=== PATIENT | male | born 1970 | race Caucasian/White ===

== ENCOUNTER 2018-01-10 08:53 | Outpatient (REF) | payer OTHER, SELFPAY ==
[2018-01-10 21:28] LABS: ALT 36 U/L (12-78); Cholesterol 193 mg/dL (50-200); Glucose 109 mg/dL (70-100); HDL Cholesterol 55 mg/dL (40-60); LDL CHOLESTEROL 115 mg/dL (<100); Triglyceride 132 mg/dL (30-150)
[2018-01-10 21:45] LABS: Creatine Kinase 210 U/L (39-308)
== END 2018-01-10 09:13 ==
LOC: NCHCN 08:53
PROVIDERS: PCP Physician Assistant; Visit Provider Internal Medicine
DX: Z00.00 Encounter for general adult medical examination without abnormal findings (principal); Z13.1 Encounter for screening for diabetes mellitus; Z13.220 Encounter for screening for lipoid disorders
CPT/HCPCS: 80061; 82550; 82947; 83721; 84460

== ENCOUNTER 2019-02-13 08:42 | Outpatient (REF) | payer OTHER, SELFPAY ==
[2019-02-13 19:55] LABS: AST 16 U/L (15-37); Calculated LDL 116 mg/dL; Cholesterol 218 mg/dL (50-200); Glucose 105 mg/dL (70-100); HDL Cholesterol 51 mg/dL (40-60); Triglyceride 257 mg/dL (30-150)
[2019-02-13 20:14] LABS: Creatine Kinase 182 U/L (39-308)
== END 2019-02-13 09:02 ==
LOC: NCHCN 08:42
PROVIDERS: PCP Physician Assistant; Visit Provider Internal Medicine
DX: Z00.00 Encounter for general adult medical examination without abnormal findings (principal); E78.5 Hyperlipidemia, unspecified
CPT/HCPCS: 80061; 82550; 82947; 84450

== ENCOUNTER 2021-09-30 18:11 | Outpatient (REF) | payer OTHER, SELFPAY ==
[2021-09-30 21:15] LABS: ALT 42 U/L (16-63); Anion Gap 8.8 mmol/L (3-11); BUN 23 mg/dL (7-18); CO2 27.2 mmol/L (21.0-32.0); CREATININE 1.1 mg/dL (0.70-1.30); Calcium 8.9 mg/dL (8.5-10.1); Calculated LDL 143 mg/dL (<100); Chloride 104 mmol/L (98-107); Cholesterol 269 mg/dL (<200); Glucose 110 mg/dL (74-106); HDL Cholesterol 58 mg/dL (40-60); Potassium 4.1 mmol/L (3.5-5.1); Sodium 140 mmol/L (136-145); Triglyceride 342 mg/dL (<150)
[2021-10-01 19:12] LABS: PSA, Screening 0.4 ng/mL (<=3.5)
== END 2021-09-30 18:12 | disposition home or self-care (01) ==
LOC: NCHCN 18:11
PROVIDERS: PCP Physician Assistant; Visit Provider Internal Medicine
DX: Z00.00 Encounter for general adult medical examination without abnormal findings (principal); R73.03 Prediabetes; E78.5 Hyperlipidemia, unspecified; E66.3 Overweight; Z12.5 Encounter for screening for malignant neoplasm of prostate
CPT/HCPCS: 80048; 80061; 84153; 84460

== ENCOUNTER 2023-10-27 09:22 | Outpatient (REF) | payer BC, SELFPAY ==
--- OUTSIDE RECORDS SUMMARY | 2023-10-27 09:25 | XMS_ITS | Clinical Summary ---
Author Organization [facility] Address [facility] [place] [address] Care Team Providers Care Flower Stripper Name Role Phone Samm Smith MD Primary Care Provider [phone] Allergies No known active allergies Medications Medication Sig Dispensed Refills Start Date End Date Status rosuvastatin (Crestor) 10 mg Tablet Take 10 mg by mouth every evening. 06/30/2020 Active ibuprofen (Advil;Motrin) 800 mg Tablet Take 800 mg by mouth every 8 hours as needed. 06/30/2020 Active Active Problems Problem Noted Date Diagnosed Date Varicose vein of leg 08/15/2020 Family History Medical History Relation Comments Other Mother Thrombophilia Neg Hx Thrombosis Neg Hx Relation Status Comments Mother Social History Tobacco Use Types Packs/Day Years Used Date Smoking Tobacco: Former Cigarettes 0.5 20 0 06/15/1993 - 06/15/2013 Smokeless Tobacco: Never Alcohol Use Standard Drinks/Week Comments Yes 14 (1 standard drink = 0.6 oz pu re alcohol) Sex and Gender Information Value Date Recorded Sex Assigned at Not on file Gender Identity Not on file Sexual Orientation Not on file Last Filed Vital Signs Vital Sign Reading Time Taken Comments Blood Pressure 132/74 11/24/2020 2:42 PM EDT Pulse 59 11/24/2020 2:42 PM EDT Temperature 36.6 ??C (97.9 ??F) 10/23/2020 10:41 AM E DT Respiratory Rate 18 10/23/2020 12:12 PM EDT Oxygen Saturation 98% 10/23/2020 12:12 PM EDT Inhaled Oxygen Concentration - - Weight 104.3 kg (230 lb) 11/24/2020 2:42 PM EDT reported Height 182.9 cm (6') 11/24/2020 2:42 PM EDT repo rted Body Mass Index 31.19 11/24/2020 2:42 PM EDT Plan of Treatment Health Maintenance Due Date Last Done Comments CT Colonography 1971 Colonoscopy 1971 Colorectal Cancer Screening 1971 FIT DNA 1971 FIT 1971 Sigmoidoscopy (10 year) with FIT yearly 1971 Sigmoidoscopy 1971 HIV screen 06/22/1989 Hepatitis C Screening 06/22/1989 Hepatitis B vaccine (0-59 yrs) (1) 06/22/1990 Tdap adult 06/22/1990 Tetanus vaccine 06/22/1990 Diabetes Screening (HgbA1C or Glucose) 2011 Zoster vaccine (1 of 2) 06/22/2021 Covid-19 Vaccine (1 - season) 2022 Influenza (Flu) vaccine (1 o f 1 - Influenza standard series) 12/11/2023 Care Teams Flower Stripper Relationship Specialty Start Date End Date Samm Smith MD [address] [place], [place] [id number] PCP - General 03/03/10
--- OUTSIDE RECORDS SUMMARY | 2023-10-27 09:25 | XMS_ITS | Encounter Summary ---
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 Name Role Phone Samm Smith MD Primary Care Provider Encounter Details Date Type Department Care Team (Late st Contact Info) Description 11/24/2020 2:00 PM EDT Office [place] [id number] Naya López APRN [facility] [place] [address] Varicose veins of left lower extremity with pain; Post-operative state Social History Tobacco Use Types Packs/Day Years Used Date Smoking Tobacco: Former Cigarettes 0.5 20 0 06/15/1993 - 06/15/2013 Smokeless Tobacco: Never Alcohol Use Standard Drinks/Week Comments Yes 14 (1 standard drink = 0.6 oz pu re alcohol) Sex and Gender Information Value Date Recorded Sex Assigned at Not on file Gender Identity Not on file Sexual Orientation Not on file documented as of this encounter Last Filed Vital Signs Vital Sign Reading Time Taken Comments Blood Pressure 132/74 11/24/2020 2:42 PM EDT Pulse 59 11/24/2020 2:42 PM EDT Temperature - - Respiratory Rate - - Oxygen Saturation - - Inhaled Oxygen Concentration - - Weight 104.3 kg (230 lb) 11/24/2020 2:42 PM EDT reported Height 182.9 cm (6') 11/24/2020 2:42 PM EDT repo rted Body Mass Index 31.19 11/24/2020 2:42 PM EDT documented in this encounter Progress Notes * Naya López, SYSTEMS TRAINER - 11/24/2020 2:00 PM EDT Vascular Clinic Progress Note Reason for visit: Post op check Interval history: 50 year old male s/p VNUS and 26 stab phlebectomy on 10/23/2020 at [facility] on10/23/20. States he is doing well, symptoms of discomfort/swelling have completely resolved, has returned to work and previous activities without issue. No fevers, no chills, feels well and is very happy that he had this procedure done. Patient Active Problem List Diagnosis Code ??? Varicose vein of leg I83.90 No Known Allergies Current Outpatient Medications on File Prior to Visit Medication Sig Dispense Refill ??? rosuvastatin (Crestor) 10 mg Tablet Take 10 mg by mouth every evening. ??? ibuprofen (Advil;Motrin) 800 mg Tablet Take 800 mg by mouth every 8 hours as needed. No current facility-administered medications on file prior to visit. Social History Socioeconomic History ??? Marital status: Spouse name: Not on file ??? Number of children: Not on file ??? Years of education: Not on file ??? Highest education level: Not on file Occupational History ??? Not on file Tobacco Use ??? Smoking status: Former Smoker Packs/day: 0.50 Years: 20.00 Pack years: 10.00 Types: Cigarettes Quit date: 06/15/2013 Years since quittin.4 ??? Smokeless tobacco: Never Used Vaping Use ??? Vaping Use: Never used Substance and Sexual Activity ??? Alcohol use: Yes Alcohol/week: 14.0 standard drinks Types: 14 Cans of beer per week ??? Drug use: Never ??? Sexual activity: Not on file Other Topics Concern ??? Not on file Social History Narrative ??? Not on file Social Determinants of Health Financial Resource Strain: ??? Difficulty of Paying Living Expenses: Not on file Food Insecurity: ??? Worried About Running Out of Food in the Last Year: Not on file ??? Ran Out of Food in the Last Year: Not on file Transportation Needs: ??? Lack of Transportation (Medical): Not on file ??? Lack of Transportation (Non-Medical): Not on file Physical Activity: ??? Days of Exercise per Week: Not on file ??? Minutes of Exercise per Session: Not on file ROS: negative except as noted in HPI Physical Exam: General: NAD, appears well Neuro: Alert and oriented, motor sensory grossly intact Ear, Nose, Throat: No masses or lesions Skin: No lesions or abnormal markings Extremity - LLLE Gutierrez, warm, no ulceration, brisk capillary refill, no edema, well healed stab sites. Assessment/Plan: 50 year old male s/p [facility]. States all symptoms have resolved, stab sites well healed, LLE without swelling, wwp. He is very happy with the procedure. To call with questions or problems and f/u PRN. Naya López, MSN, SYSTEMS TRAINER Vascular Surgery documented in this encounter Plan of Treatment Not on file documented as of this encounter Visit Diagnoses Diagnosis Varicose veins of left lower extremity with pain Varicose veins of lower extremities with other complications Post-operative state Other postprocedural status documented in this encounter Care Teams [employer] Air[employer] Officer Relationship Specialty Start Date End Date Samm Smith MD [address] [place] [id number] PCP - General 03/03/10 documented as of this encounter
--- OUTSIDE RECORDS SUMMARY | 2023-10-27 09:25 | XMS_ITS | Encounter Summary ---
Author Organization [facility] [place] [address] Care Team Providers Care Nut Roaster Name Role Phone Samm Smith MD Primary Care Provider [phone] Encounter Details Date Type Department Care Team (Late st Contact Info) Description 09/17/2020 Orders Only Vascular Surgery at [facility] [place] [phone] Anne-Marie Whitman RN Social History Tobacco Use Types Packs/Day Years Used Date Smoking Tobacco: Former Cigarettes 0.5 20 0 06/15/1993 - 06/15/2013 Smokeless Tobacco: Never Sex and Gender Information Value Date Recorded Sex Assigned at Not on file Gender Identity Not on file Sexual Orientation Not on file documented as of this encounter Plan of Treatment Scheduled Orders Name Type Priority Associated Diagnoses Orde r Schedule SURGICAL CASE REQUEST: ENDOVENOUS ABLATION THERAPY OF INCOMPETENT VEIN, EXTREMITY, FIRST VEIN (WRVU 5.3), STAB PHLEBECTOMY ADILENE VEINS 1 EXTREMITY 10-20 INCISIONS (WRVU 7.71) Procedures Routine One Time f or 1 Occurrences starting 09/17/2020 until 09/17/2020 documented as of this encounter Visit Diagnoses Not on filedocumented in this encounter Care Teams Nut Roaster Relationship Specialty Start Date End Date Samm Smith MD [address] [place] [id number] PCP - General 03/03/10 documented as of this encounter
--- OUTSIDE RECORDS SUMMARY | 2023-10-27 09:25 | XMS_ITS | Encounter Summary ---
Author Organization [facility] Address [facility] [place] [address] Care Team Providers Care Lion Tamer Name Role Phone Samm Smith MD Primary Care Provider Reason for Referral * Diagnostic Test (Routine) - Closed Specialty Diagnoses / Procedures Referred By Marianne t Referred To Contact Diagnoses Varicose veins of left lower extremity with pain Procedures Duplex for DVT, Leg, Elisa Blackburn PA [facility] [place] [address] [facility] Lab [address] [place] [address] Referral ID Status Reason Start Date Expiration Date V isits Requested Visits Authorized [id number] Closed Specialty Service Requested 10/23/2020 10/23/2021 1 1 Reason for Visit * Auth/Cert Specialty Diagnoses / Procedures Referred By Contac t Referred To Contact Diagnoses symptomatic varicose veins Procedures PRO ENDOVENOUS RF, 1ST VEIN PRO PHLEB VEINS - EXTREM - TO 20 ENDOVENOUS ABLATION THERAPY OF INCOMPETENT VEIN, EXTREMITY, FIRST VEIN (WRVU 5.3) STAB PHLEBECTOMY ADILENE VEINS 1 EXTREMITY 10-20 INCISIONS (WRVU 7.71) Referral ID Status Reason Start Date Expiration Date Visits Re quested Visits Authorized [id number] 1 1 Encounter Details Date Type Department Care Team (Latest Contact Info) Description 10/23/2020 8:03 AM EDT - 10/23/2020 12:47 PM EDT Hospital Encounter Post Acute Care Unit at [facility] [place] [id number] Jason Bryan MD [facility] [place] [address] Varicose veins of left lower extremity with pain Discharge Disposition: Home Social History Tobacco Use Types Packs/Day Years [...] Sign Reading Time Taken Comments Blood Pressure 135/81 10/23/2020 12:12 PM EDT Pulse 49 10/23/2020 12:12 PM EDT Temperature 36.6 ??C (97.9 ??F) 10/23/2020 10:41 AM E DT Respiratory Rate 18 10/23/2020 12:12 PM EDT Oxygen Saturation 98% 10/23/2020 12:12 PM EDT Inhaled Oxygen Concentration - - Weight 104.3 kg (230 lb) 10/23/2020 8:23 AM EDT Height 182.9 cm (6') 10/23/2020 8:23 AM EDT Body Mass Index 31.19 10/23/2020 8:23 AM EDT documented in this encounter Discharge Instructions * Patient Instructions* Elisa Alarcon PA - 10/23/2020 10:39 AM EDT Instructions following Vein Ablation and Stab Phlebectomy Activity: You should start walking the day after surgery. When sitting, try to elevate and prop your leg up on pillows as much as possible. No vigorous activity (such as jogging, running, biking) forat least 1 week or until cleared to do so at your follow-up visit. Wound care: Keep PO wraps on your leg for the next 48 hours. At that point you can remove all dressings and shower. Do not take a bath or swim for at least 2 weeks. You may have Dermabond (medical glue) or steri-strips (pieces of tape) on your skin. Keep them on until they fall off on their own. If you notice the steri-strips begin to peel off, you may trim them. Bruising around the incisions can be normal and will fade over time. Pain Medication: You may take acetaminophen (Tylenol) and ibuprofen (Advil, Motrin) for pain. If your surgeon provides you prescription pain medicine (opioid) you should not drive for 8 hours after taking it. Call Doctor for: Please call if you notice worsening redness or foul-smelling drainage from incision(s), if your pain is not controlled by pain medication or for fevers greater than 101.3F. Follow-up: You will have an ultrasound in 1-3 days after your procedure. If you do not receive the ultrasound appointment at the time of discharge, you will be called with a date and time. You will be seen by your surgeon (or associate provider) in the Vascular Clinic in approximately 4 weeks. Thisclinic appointment will be mailed to you. Please call our office ([phone]) if you do not receive the ultrasound appointment within 2 days or the clinic appointment within 10 days. For any questions or concerns please call [phone] documented in this encounter Medications at Time of Discharge Medication Sig Dispensed Refills Start Date End Date rosuvastatin (Crestor) 10 mg Tablet Take 10 mg by mouth every evening. 06/30/2020 ibuprofen (Advil;Motrin) 800 mg Tablet Take 800 mg by mouth every 8 hours as needed. 06/30/2020 documented as of this encounter Progress Notes * Christ Marie RN - 10/23/2020 12:45 PM EDT IV removed, site asymptomatic, CDD to site. Discharge instructions discussed with pt and , who verbalized understanding. Dressings CDI upon discharge. Transported out of facility via , [facility]. * Christ Marie RN - 10/23/2020 12:26 PM EDT New dressing remains CDI. Pt in NAD. at bedside helping pt change. Continuing to monitor * Christ Marie RN - 10/23/2020 11:37 AM EDT PA at bedside replacing post-op dressings. Per MD, pt is to stay in bed with leg elevated for the next 30-45min. Pt in NAD. * Christ Marie RN - 10/23/2020 11:29 AM EDT Joey bleeding noted from under PO after ambulation to bathroom. Pt back in bed, pressure dressingapplied, leg elevated. MD and PA aware, continuing to monitor. documented in this encounter H&P Notes * Elisa Alarcon PA - 10/23/2020 9:08 AM EDT Vascular Surgery History and Physical HPI: Ruchi Núñez is a 50 y.o. male with symptomatic BLE varicose veins. Per Dr. Domínguez's last clinic note on 09/12/20, Mr. Núñez has pruritis and aching of his BLE varicose veins, worse in his LLE. Patients worst symptoms are related to a cluster of varicose veins on his L medial thigh. Patient reports his symptoms are worse after he is on his feet throughout the day. 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 Patient denies any hx of superficial thrombophlebitis,venous stasis ulcers, bleeding varicose veins, DVT or PE. He has worn compression stockings for many months with out relief of symptoms. Patient's BLE symptoms from his varicose veins are negatively i mpacting his quality of life. Patient denies any changes to her health or new medical concerns since his last clinic visit. Denies any recent illness. Denies chest pain, dyspnea, cough, fevers, or chills. There are no hospital problems to display for this patient. Active Non-Hospital Problems Diagnosis ??? Varicose vein of leg Review of Systems: A full review encompassing at least 10 organ systems including general, neuro, pulm, cardiac, GI, , MSK, Endo, and Psych was negative other than listed in the HPI. Past Medical History: Past Medical History: Diagnosis Date ??? Varicose vein of leg 08/15/2020 Past Surgical History: Past Surgical History: Procedure Laterality Date ??? VARICOCELECTOMY ??? WISDOM TOOTH EXTRACTION Social Hx: Social History Socioeconomic History ??? Marital status: Spouse name: Not on file ??? Number of children: Not on file ??? Years of education: Not on file ??? Highest education level: Not on file Occupational History ??? Not on file Tobacco Use ??? Smoking status: Former Smoker Packs/day: 0.50 Years: 20.00 Pack years: 10.00 Types: Cigarettes Quit date: 06/15/2013 Years since quittin.3 ??? Smokeless tobacco: Never Used Vaping Use [...] Strain: ??? Difficulty of Paying Living Expenses: Food Insecurity: ??? Worried About Running Out of Food in the Last Year: ??? Ran Out of Food in the Last Year: Transportation Needs: ??? Lack of Transportation (Medical): ??? Lack of Transportation (Non-Medical): Physical Activity: ??? Days of Exercise per Week: ??? Minutes of Exercise per Session: Family Hx: Negative for Thrombosis, Bleeding Disorders Family History Problem Relation Age of Onset ??? Other Mother ??? Thrombophilia Neg Hx ??? Thrombosis Neg Hx Medications: No current facility-administered medications on file prior to encounter. Current Outpatient Medications on File Prior to Encounter Medication Sig Dispense Refill ??? rosuvastatin (Crestor) 10 mg Tablet Take 10 mg by mouth every evening. ??? ibuprofen (Advil;Motrin) 800 mg Tablet Take 800 mg by mouth every 8 hours as needed. Allergies: No Known Allergies Physical Exam: Vital Signs: Temp: [36 ??C (96.8 ??F)] Heart Rate: [58] Resp: [16] BP: (129)/(77) SpO2: [97 %] Heart Rate from SpO2: -- GEN: Alert and appears stated age. Cooperative. In NAD. HEENT: Normocephalic and atraumatic. Neck: Supple, symmetric, trachea midline. CV: Bradycardic. Pulm: No evidence of increased work of breathing. Abd: Soft, non-distended, non-tender to palpation. Skin: Color, texture, turgor normal. No rashes or lesions. Neuro: No focal deficits, gross sensory or motor abnormalities. Extremities: LLE varicose veins along medial distal thigh to medial calf and posterior calf. RLE varicose veins of medial distal thigh and calf. Bilateral UE and LE warm and pink. No edema. No wounds. Labs: No results for input(s): WBC, HGB, HCT, PLATELET in the last 72 hours. No results for input(s): NA, K, CL, CO2, BUN, CREATININE, PHOS, CALCIUM in the last 72 hours. Studies/Imaging: Venous valve incompetence study 09/15/20: Findings: Left ? Reflux?Diameter (mm) ??Depth (mm) ?? Common Femoral Vein ??Reflux ? Femoral Vein ? Reflux ? Popliteal ?Competent ? GSV, Near SFJ ?Reflux ? 8.0 ?10.6 ?? GSV, Proximal Thigh ??Reflux ? 5.5 ? 7.9 ?? GSV, Mid Thigh ? Reflux ? 8.8 ? 6.7 ?? GSV, Distal Thigh ?Reflux ? 6.4 ? 9.1 ?? GSV, ??Knee ? Reflux ? 6.1 ? 7.4 ?? GSV Prox Calf ?Reflux ? 5.2 ? 6.4 ?? GSV, Mid Calf ?Reflux ? 3.4 ? 8.0 ?? GSV, Distal Calf ? Competent ? SSV ?Competent ? Interpretation: LEFT: There is superficial venous reflux in the great saphenous vein >2.7 seconds at the saphenofemoral junction and >3.4 seconds through the thigh, knee and to the mid calf. There is also reflux >2.7 seconds in varicose veins associated with the GSV in the calf and reflux >3.6 in varicose veins associated with the GSV at the knee. No significant reflux noted in the small saphenous vein near the popliteal fossa on today's exam. Deep venous reflux is also noted in the CFV (>2.4 seconds) and in the primary femoral vein through the thigh (reflux >1.6 seconds). No significant reflux noted in the s smaller secondary femoral vein in the proximal to mid thigh or in the popliteal vein. No evidence of common femoral, femoral vein(s) or popliteal DVT. No??evidence of superficial (GSV, SSV or varicose vein) thrombus. Assessment and Plan: Ruchi Núñez is a 50 y.o. male with symptomatic LLE>RLE varicose veins that are lifestyle limiting at this time. Patient has failed conservative therapy with compression stockings and leg elevation. Venous valve incompetence duplex on 09/15/20 reveals deep reflux in L CFV and FV as well as significant GSV reflux to the mid calf. Plan for L GSV ablation and stab phlebectomies to relieve sympt oms from his varicose veins. Patient understands that he may have continued symptoms from his deep venous insufficiency post-operatively. Patient is consented and in agreement with the OR plan today. AMBER Galeana 10/23/2020 documented in this encounter Miscellaneous Notes * Op Note - Jason Bryan MD - 10/23/2020 9:50 AM EDT [facility] [place] [address] Patient Name: Ruchi Núñez : [id number] MR#: [id number] Case Date: 10/23/2020 Case Scheduled Time: 934 Surgeon: Surgeon(s) and Role: * Jason Bryan MD - Primary * Elisa Alarcon PA - Physician Sheet Manufacturing Supervisor Preoperative diagnosis: symptomatic varicose veins Postoperative diagnosis: symptomatic varicose veins Procedure(s) (LRB): ENDOVENOUS ABLATION THERAPY OF INCOMPETENT VEIN, EXTREMITY, FIRST VEIN (WRVU 5.3) (Left) STAB PHLEBECTOMY ADILENE VEINS 1 EXTREMITY MORE 20 INCISIONS (WRVU 9.66) (Left) Anesthesia: General Estimated Blood Loss: 50cc Specimens removed during surgery: None Drains: * No LDAs found * Surgical Closure: Primary Closure - skin incision is completely closed without any wires, sally, drains or other devices Disposition: awakened from anesthesia, extubated and taken to the recovery room in a stable condition, having suffered no apparent untoward event. Condition: doing well without problems Complications: none (Please see the Surgical Encounter Summary for any Implant and Specimen details pertinent to this patient.) Findings: 26 stab phlebectomies Surgical Indications: Mr. Núñez has symptomatic LLE superficial venous insufficiency and varicoseveins. Procedure Description: Mr. Núñez was taken to the operating room after informed consent was obtained. He was placed supine on the operating table under general anesthesia. All pressure points were well-padded and he was secured to the table. The left lower extremity was sterilely prepped and draped. A timeout was performed. The course of the greater saphenous vein was visualized under ultrasound. Using ultrasound guidance, micropuncture needle was used to access the greater saphenous vein at thelevel of the left knee. Using Seldinger technique a micropuncture sheath was inserted over a [place] wire. The sheath used as the insertion for the Marlys vein device. This was deployed in standard fashio n beginning approximately 3 cm away from the saphenofemoral junction down to the puncture site at the level of the knee. At the end the sheath were removed and direct pressure was applied over the ablated vein. Multiple venous varicosities were previously marked. Focal stab incisions totaling 26 were made to remove these varicose veins. Pressure was applied for hemostasis. All punctures were reinforced withSteri-Strips. Leg was bandaged using Kerlix, Telfa, and Po bandage. All counts were correct and there were no complications. Infection Bundle used? No () I worked under my direction for the duration of the operative session. The printer assistant adequately prepped the operative site and maintained the best possible exposure of anatomy incident to the procedure. Jason Bryan MD 10/23/2020 documented in this encounter Plan of Treatment Not on file documented as of this encounter Procedures Procedure Name Priority Date/Time Associated Diagnosis Comments Phleb Veins - Extrem 20+ (81115) 10/23/2020 9:26 AM EDT symptomatic varicose veins Endovenous Ablation Incompetent Vein Radiofrequency 1St Vein (63400) 10/23/2020 9:26 AM EDT symptomatic varicose veins documented in this encounter Results * Duplex for DVT, Leg, Unilat (10/27/2020 10:47 AM EDT) VB Text Report Department: Vascular Surgery Lab Patient: [id number] (RUCHI NÚÑEZ) CPT: 96061 ICD10: I83.812 Referring Physician: JASON BRYAN ?? Phone: Indications: ??s/p L VNUS, ? DVT ICD10 Diagnosis Code: I83.812 Findings: Left- The great saphenous vein is ablated to with in 2.0 cm of the saphenofemoral junction, does not extend into the common femoral vein. Patent inferior epigastric vein. Patent common femoral vein with spontaneous, respirophasic Doppler waveforms that respond normally to augmentation maneuvers. The common femoral vein, saphenofemoral junction and femoral vein through the proximal thigh are fully compressible. Interpretation: Left- Successful ablation of the great saphenous vein. No evidence of lower extremity deep venous thrombosis through the proximal thigh. No previous post-op study in our vascular lab database for comparison. Electronically Signed by: KARIN BURKETT on 2020-10-28 01:53:53 PM [facility] VB Text Report End of Report [facility] 10/27/2020 10:4 7 AM EDT Jason Bryan MD VASCULAR ORDERABLES [facility] documented in this encounter Visit Diagnoses Diagnosis Varicose veins of left lower extremity with pain Varicose veins of lower extremities with other complications documented in this encounter Administered Medications Inactive Administered Medications - up to 3 most recent administrations Medication Order MAR Action Action Date Dose Rate Site lactated ringers infusion 1,000 mL, at 50 mL/hr, Intravenous, CONTINUOUS, Starting on Lina 10/23/20 at 0845, Until Lina 10/23/20 at 1229, Day of Surgery (Day of Procedure) New Bag 10/23/2020 10:29 AM EDT New Bag 10/23/2020 8:45 AM EDT 1,000 mLs 50 mL/hr documented in this encounter Active and Recently Administered Medications Times are shown in EDT. Scheduled Medication Order 10/21/2020 10/22/2020 10/23/2020 ceFAZolin (Ancef) 2 g in dextrose 5% 100 mL infusion (COMPLETED) 2 g, Intravenous, SOLVENT STATION ATTENDANT TO O.R., 1 dose, On Lina 10/23/20 at 0845, Administer over 30 Minutes, Redose after 4 hours., Day of Surgery (Day of Procedure), Indication for (Active or Suspected): Prophylaxis 0938 (Given - Provid er: Po Alfredo CRNA) Continuous Medication Order 10/21/2020 10/22/2020 10/23/2020 lactated ringers infusion (CANCELED) 1,000 mL, at 50 mL/hr, Intravenous, CONTINUOUS, Starting on Lina 10/23/20 at 0845, Until Lina 10/23/20 at 1229, Day of Surgery (Day of Procedure) 0845 (New Bag - Prov ider: Dorita Gonzalez RN)1028 (Paused - Provider: Po Alfredo CRNA - Comment: Switch to gravity)1029 (New Bag - Provider: Po Alfredo CRNA) PRN Medication Order 10/21/2020 10/22/2020 10/23/2020 sodium tetradecyl sulfate (Sotradecol) (30 mg/mL) 3% injection (CANCELED) ONCE PRN, Starting on Lina 10/23/20 at 1009, Until Lina 10/23/20 at 1326, Intra-Operative (Intra-Procedure), Routine 1009 (Given - Provid er: Jason Bryan MD) documented in this encounter Care Teams Lion Tamer Relationship Specialty Start Date End Date Samm Smith MD [address] [place] [id number] PCP - General 03/03/10 documented as of this encounter
--- OUTSIDE RECORDS SUMMARY | 2023-10-27 09:25 | XMS_ITS | Encounter Summary ---
[place] [address] Care Team Providers Care Office Rental Clerk Name Role Phone Samm Smith MD Primary Care Provider Reason for Referral * Diagnostic Test (Routine) - Closed Specialty Diagnoses / Procedures Referred By Contac t Referred To Contact Diagnoses Varicose veins of left lower extremity with pain Procedures LE Unilateral Valvular Incomp Study Antonieta oFx APRN [facility] [place] [address] [facility] Lab [address] [place] [phone] Referral ID Status Reason Start Date Expiration Date V isits Requested Visits Authorized [id number] Closed Specialty Service Requested 08/15/2020 08/15/2021 1 1 Reason for Visit * Consultation (Routine) - Closed Specialty Diagnoses / Procedures Referred By Contac t Referred To Contact Vascular Surgery Diagnoses Asymptomatic varicose veins of bilateral lower extremities Samm Smith MD [address] [place] [id number] [facility] [address] [place] [phone] Referral ID Status Reason Start Date Expiration Date V isits Requested Visits Authorized [id number] Closed Consult, Test & Treat Connection Center PCP Updated and/or Approved 07/29/2020 01/28/2021 6 6 Encounter Details Date Type Department Care Team (Late st Contact Info) Description 08/15/2020 9:00 AM EDT Office Visit [place] [phone] Antonieta Fox APRN [facility] [place] [address] Varicose veins of left lower extremity with pain Social History Tobacco Use Types Packs/Day Years Used Date Smoking Tobacco: Former Cigarettes 0.5 20 0 06/15/1993 - 06/15/2013 Smokeless Tobacco: Never Sex and Gender Information Value Date Recorded Sex Assigned at Not on file Gender Identity Not on file Sexual Orientation Not on file documented as of this encounter Last Filed Vital Signs Vital Sign Reading Time Taken Comments Blood Pressure 145/74 08/15/2020 8:59 AM EDT Pulse 59 08/15/2020 8:59 AM EDT Temperature - - Respiratory Rate - - Oxygen Saturation - - Inhaled Oxygen Concentration - - Weight 104.3 kg (230 lb) 08/15/2020 8:59 AM EDT reported Height 182.9 cm (6') 08/15/2020 8:59 AM EDT repo rted Body Mass Index 31.19 08/15/2020 8:59 AM EDT documented in this encounter Progress Notes * Antonieta Fox APRN - 08/15/2020 9:00 AM EDT Vascular Surgery Consultation Consult requested by Samm Smith MD for evaluation of painful varicose veins. History: Ruchi Núñez is a 50 y.o. male who has noted to have bilateral, L>R varicose veins for ~10 years. The patient has noted the following symptoms below for several years in the left leg, right leg remains asymotomatic. The patient has used OTC compression stockings in the past without relief of symptoms. Of note, pt had a left leg break and repair in 1989. Pt also complains of left plantar heel pain, increased with activity/ambulation. Pain is aching in nature and significant after 8 hours on my feet. Y N SYMPTOM X Leg aching X Leg swelling X Leg elevation greater than 20 minutes/3x per day X Daily use of compression stockings 20-30mmHg (6-8 weeks) X Family history of varicose veins X History of more than two episodes of phlebitis X Refractory edema X Stasis dermatitis X History of DVT X Prior venous surgery X Prior ulceration X Current ulceration X History of two more episodes of bleeding varicosities X Chronic cellulitis Review of Systems: Prior cardiac history: no Prior pulmonary history: no Prior issues with general anesthesia: no Family history of malignant hyperthermia: no Issues with snoring or sleep apnea: no PE: Patient Vitals for the past 24 hrs: Pulse BP 08/15/20 0859 59 145/74 Body mass index is Body mass index is 31.19 kg/m??. Heart: RRR, no murmurs, no S3 or S4 Chest: CTA, no wheeze Location of the varicosities: Left medial thigh, left medial and posterior calf Size of the varicosities (greater than 3mm): 9-15mm Carotid pulses equal and bilateral No palpable pulsatile abdominal masses, no abdominal bruits Palpable bilateral femoral, popliteal and tibial pulses Y N PHYSICAL FINDINGS X Radial pulses bilaterally X DP and PT pulses bilaterally X Evidence of healed ulceration X Stasis dermatitis X Cellulitis X Palpable Thrills Plan for Intervention: Ruchi Núñez is a 50 y.o. male with a hx of varicose veins for ~10 years. Recommend patient start wearing 20-30 mmHg compression stockings throughout the day, will provide prescription. Elevate LE for at least 20 minutes 3 x per day. Careful monitoring for development of wounds or bleeding varicose veins. Follow- up in clinic in 4-6 weeks with LE venous valvular incompetence study. Instructed to call the clinic with any concerns prior to next appointment. Pt's left heel pain seems unrelated to venous reflux as it is on the plantar, walking surface. Pt does have faint venous stasis present to left medial ankle that may be contributory. Pt is encouragedto follow-up with PCP for ongoing heel pain workup. Antonieta Fox APRN Department of Vascular Surgery documented in this encounter Plan of Treatment Not on file documented as of this encounter Results * LE Unilateral Valvular Incomp Study (09/12/2020 8:48 AM EDT) VB Text Report Department: Vascular Surgery Lab Patient: [id number] (RUCHI NÚÑEZ) CPT: 82025 ICD10: I87.2;I83.812 Referring Physician: ANTONIETA FOX ?? Phone: Indications: 50 year old male with symptomatic LEFT lower extremity varicose veins (primarily knee through calf), ? reflux Patient Positioning: ??Reverse Trendelenburg ICD10 Diagnosis Code: I87.2, I83.812 Findings: Left ? Reflux?Diameter (mm) ??Depth (mm) [...] common femoral, femoral vein(s) or popliteal DVT. No evidence of superficial (GSV, SSV or varicose vein) thrombus. Comparison: No previous study in our vascular lab database from comparison. Electronically Signed by: MARIO KARIMI MD on 2020-09-15 02:43:00 PM [facility] VB Text Report End of Report [facility] 09/12/2020 8:48 AM EDT Antonieta Fox APRN VASCULAR ORDERABLES [facility] documented in this encounter Visit Diagnoses Diagnosis Varicose veins of left lower extremity with pain Varicose veins of lower extremities with other complications documented in this encounter Care Teams Office Rental Clerk Relationship Specialty Start Date End Date Samm Smith MD [address] [address] PCP - General 03/03/10 documented as of this encounter
--- OUTSIDE RECORDS SUMMARY | 2023-10-27 09:25 | XMS_ITS | Encounter Summary ---
Author Organization [facility] Address [facility] [place] [address] Care Team Providers Care Psychology Teacher Name Role Phone Samm Smith MD Primary Care Provider Reason for Visit * Auth/Cert Specialty Diagnoses / Procedures Referred By Marianne t Referred To Contact Diagnoses symptomatic varicose veins Procedures PRO ENDOVENOUS RF, 1ST VEIN PRO PHLEB VEINS - EXTREM - TO 20 ENDOVENOUS ABLATION THERAPY OF INCOMPETENT VEIN, EXTREMITY, FIRST VEIN (WRVU 5.3) STAB PHLEBECTOMY ADILENE VEINS 1 EXTREMITY 10-20 INCISIONS (WRVU 7.71) Referral ID Status Reason Start Date Expiration Date Visits Re quested Visits Authorized [id number] 1 1 Encounter Details Date Type Department Care Team (Late st Contact Info) Description 10/23/2020 9:25 AM EDT Anesthesia [place] [address] [place] [address] Anesthesia Record Procedure Summary Procedure Name Responsible Anesthesiologist Anesthesia Start Time Anesthesia Stop Time ENDOVENOUS ABLATION THERAPY OF INCOMPETENT VEIN, EXTREMITY, FIRST VEIN (WRVU 5.3) (Left: Leg) Po Alfredo CRNA 10/23/20 0925 10/23/20 1046 Events Date Time Event Comment 10/23/2020 0917 0925 AN Verify 0925 Start 0926 An Start Data 0934 An Induction 0936 An Intubation 0938 Anesthesia Ready 1036 Extubation/LMA Out 1037 an stop data 1046 Recovery or ICU Handoff Sumaya ent care was transferred to the destination unit staff after review of the patient's medical history, current anesthetic/surgical status and plan, according to the Provider Handoff Checklist. 1046 Stop Meds Name Total Midazolam 4 mg fentaNYL 100 mcg Propofol 400 mg Propofol INF 276.4 mg Ondansetron 8 mg Dexamethasone 4 mg Ketorolac 30 mg ceFAZolin (Ancef) 2 g in dextrose 5% 100 mL infusion 2 g lactated ringers infusion 1,000 mL * Agents Name O2 Air N2O Sevoflurane (et) * Blood No blood administrations on file. Lines, Drains, and Airways Type Details Placement Removal (RETIRED) Peripheral IV Line - Single Lumen 10/23/20; 0845; metacarpal vein (top of hand), left; eyal-yqn-obvhpi catheter system; 20 gauge; es; distraction, tolerated well; 01/14/21 (LDA Cleanup utility RA#[id number]); 1650 (LDA Cleanup utility RA#[id number]) 10/23/20 0845 by Dorita Gonzalez RN 01/14/21 1650 by Tien Luevano Supraglottic Mask Ventilation: Adjunct (2); LMA Type: iGel; LMA Size: 4; Inserted by: Walt Alfredo CRNA; Removal Date: 10/23/20; Removal Time: 1036 10/23/20 0936 by Po Alfredo CRNA 10/23/20 1036 by Po Alfredo CRNA Incision 10/23/20; 0950; Left ; leg; vascular punctures; 12/07/21 (LDA cleanup utility RA#[id number]); 1715 (LDA cleanup utility RA#[id number]) 10/23/20 0950 by Jessenia Fuchs RN 12/07/21 1715 by Renee Gee documented in this encounter Social History Tobacco Use Types Packs/Day Years [...] on file documented as of this encounter OR Notes * Anesthesia Postprocedure Evaluation - Po Alfredo CRNA - 10/23/2020 12:11 PM EDT Department of Anesthesiology Post-procedure Note Patient: Gomez Sparks Procedure Summary Date: 10/23/20 Room / Location: [facility] MAIN OR Anesthesia Start: 924 Anesthesia Stop: 1045 Procedures: ENDOVENOUS ABLATION THERAPY OF INCOMPETENT VEIN, EXTREMITY, FIRST VEIN (WRVU 5.3) (Left Leg) STAB PHLEBECTOMY ADILENE VEINS 1 EXTREMITY MORE 20 INCISIONS (WRVU 9.66) (Left Leg) Diagnosis: (symptomatic varicose veins) Surgeons: Jason Bryan MD Responsible Provider: Po Alfredo CRNA Anesthesia Type: general ASA Status: 2 All Anesthesia Providers: ERICA Independent: Po Alfredo CRNA Vitals Value Taken Time BP 127/76 10/23/20 1102 Temp 36.6 ??C (97.9 ??F) 10/23/20 1041 Pulse 72 10/23/20 1102 Resp 20 10/23/20 1102 SpO2 97 % 10/23/20 1102 Pain Level Patient Location: PACU Level of Consciousness: Awake and Alert Pain Management: Satisfactory Analgesia PONV: None Cardiovascular Status: At Baseline Respiratory Status: At Baseline Postoperative Fluid Status: Intravascular EUvolemia Possible Anesthetic Complications: NONE apparent at time of evaluation Final Primary Anesthesia Type: General (The anesthetic type performed was the same as planned.) Comments: See PACU Flow Sheet * Anesthesia Preprocedure Evaluation - Po Alfredo CRNA - 10/23/2020 9:16 AM EDT Pre-Anesthesia Evaluation for: Gomez Sparks a 50 y.o. male. Procedure(s): ENDOVENOUS ABLATION THERAPY OF INCOMPETENT VEIN, EXTREMITY, FIRST VEIN (WRVU 5.3) STAB PHLEBECTOMY ADILENE VEINS 1 EXTREMITY 10-20 INCISIONS (WRVU 7.71) Patient Active Problem List Diagnosis ??? Varicose vein of leg Past Medical History: Diagnosis Date ??? Varicose vein of leg 08/15/2020 Past Surgical History: Procedure Laterality Date ??? VARICOCELECTOMY ??? WISDOM TOOTH EXTRACTION Social History Tobacco Use ??? Smoking status: Former Smoker Packs/day: 0.50 Years: 20.00 Pack years: 10.00 Types: Cigarettes Quit date: 06/15/2013 Years since quittin.3 ??? Smokeless tobacco: Never Used Substance Use Topics ??? Alcohol use: Yes Alcohol/week: 14.0 standard drinks Types: 14 Cans of beer per week Social History Substance and Sexual Activity Drug Use Never No Known Allergies Medications: MAR and/or home medications have been reviewed. Physical Exam: Preprocedure Vitals Current as of 10/23/20 0916 BP: 129/77 Pulse: 58 Resp: 16 SpO2: 97 Temp: 36 ??C (96.8 ??F) Height: 182.9 cm (6') (10/23/20) Weight: 104.3 kg (230 lb) (10/23/20) BMI: 31.19 IBW: 77.6 kg (171 lb 1.9 oz) Last edited 10/23/20 0823 by ES Airway Assessment: Mallampati: II TM distance: >3 FB Neck ROM: full Cardiovascular Assessment: Rhythm: regular Rate: normal Pulmonary Assessment: breath sounds clear to auscultation Dental Assessment: - normal exam Misc Assessment: Patient is wearing No contact(s). IV access: Peripheral line Last Filed Perioperative Cognitive Screening None Anesthesia Plan: ASA 2 general, with a(n) intravenous induction Informed Consent: Anesthetic plan and risks discussed with patient. Anesthesia Screening documented in this encounter Plan of Treatment Not on file documented as of this encounter Visit Diagnoses Not on filedocumented in this encounter Administered Medications Inactive Administered Medications - up to 3 most recent administrations Medication Order MAR Action Action Date Dose Rate Site ceFAZolin (Ancef) 2 g in dextrose 5% 100 mL infusion 2 g, Intravenous, RECONCILIATION COORDINATOR TO O.R., 1 dose, On Lina 10/23/20 at 0845, Administer over 30 Minutes, Redose after 4 hours., Day of Surgery (Day of Procedure), Indication for (Active or Suspected): Prophylaxis Given 10/23/2020 9:38 AM EDT 2 g dexamethasone (Decadron) injection Intravenous, PRN, Starting on Lina 10/23/20 at 0937, Until Lina 10/23/20 at 1046, Anesthesia Intra-op, Routine Given 10/23/2020 9:37 AM EDT 4 mg fentaNYL (pf) (50 mcg/mL) multi-dose injection Intravenous, PRN, Starting on Lina 10/23/20 at 0946, Until Lina 10/23/20 at 1046, Anesthesia Intra-op, Routine Given 10/23/2020 9:46 AM EDT 100 mcg ketorolac (Toradol) (30 mg/mL) injection Intravenous, PRN, Starting on Lina 10/23/20 at 1029, Until Lina 10/23/20 at 1046, Anesthesia Intra-op, Routine Given 10/23/2020 10:29 AM EDT 30 mg lactated ringers infusion 1,000 mL, at 50 mL/hr, Intravenous, CONTINUOUS, Starting on Lina 10/23/20 at 0845, Until Lina 10/23/20 at 1229, Day of Surgery (Day of Procedure) New Bag 10/23/2020 10:29 AM EDT New Bag 10/23/2020 8:45 AM EDT 1,000 mLs 50 mL/hr midazolam (pf) (Versed) (1 mg/mL) multi-dose injection Intravenous, PRN, Starting on Lina 10/23/20 at 0925, Until Lina 10/23/20 at 1046, Anesthesia Intra-op, Routine Given 10/23/2020 9:26 AM EDT 2 mg Given 10/23/2020 9:25 AM EDT 2 mg ondansetron (pf) (Zofran) (2 mg/mL) injection Intravenous, PRN, Starting on Lina 10/23/20 at 0937, Until Lina 10/23/20 at 1046, Anesthesia Intra-op, Routine Given 10/23/2020 9:37 AM EDT 8 mg propofoL (Diprivan) 10 mg/mL bolus injection (Anesthesia) Intravenous, PRN, Starting on Lina 10/23/20 at 0934, Until Lina 10/23/20 at 1046, Anesthesia Intra-op Given 10/23/2020 9:35 AM EDT 100 mg Given 10/23/2020 9:34 AM EDT 300 mg propofoL (Diprivan) infusion Intravenous, CONTINUOUS PRN, Starting on Lina 10/23/20 at 0939, Until Lina 10/23/20 at 1046, Anesthesia Intra-op, Routine New Bag 10/23/2020 9:39 AM EDT 50 mcg/kg/min 31.29 mL/hr documented in this encounter Care Teams Psychology Teacher Relationship Specialty Start Date End Date Samm Smith MD [address] [place] [id number] PCP - General 03/03/10 documented as of this encounter
--- OUTSIDE RECORDS SUMMARY | 2023-10-27 09:25 | XMS_ITS | Encounter Summary ---
Author Organization [facility] Address [facility] [place] [address] Care Team Providers Care Nuclear Control Room Operator Name Role Phone Samm Smith MD Primary Care Provider [phone] Encounter Details Date Type Department Care Team (Late st Contact Info) Description 10/14/2020 Telephone [place] [address] Elisa Alarcon PA [facility] [place] [address] Social History Tobacco Use Types Packs/Day Years Used Date Smoking Tobacco: Former Cigarettes 0.5 20 0 06/15/1993 - 06/15/2013 Smokeless Tobacco: Never Sex and Gender Information Value Date Recorded Sex Assigned at Not on file Gender Identity Not on file Sexual Orientation Not on file documented as of this encounter Miscellaneous Notes * Telephone Encounter - Elisa Alarcon PA - 10/14/2020 4:47 PM EDT Patient denies any changes to his health since his last clinic appointment. Denies any new health issues or concerns, anticipating OR at [facility] on 10/23/20. Instructed to call the clinic with any concerns prior to next appointment. AMBER Galeana documented in this encounter Plan of Treatment Not on file documented as of this encounter Visit Diagnoses Not on filedocumented in this encounter Care Teams Nuclear Control Room Operator Relationship Specialty Start Date End Date Samm Smith MD [address] [address] PCP - General 03/03/10 documented as of this encounter
--- OUTSIDE RECORDS SUMMARY | 2023-10-27 09:25 | XMS_ITS | Encounter Summary ---
Author Organization [facility] Address [facility] [place] [address] Care Team Providers Care Automatic Folder Seamer Name Role Phone Samm Smith MD Primary Care Provider Encounter Details Date Type Department Care Team (Late st Contact Info) Description 10/27/2020 11:00 AM EDT Tech [place] [id number] [place] Varicose veins of left lower extremity with [...] as of this encounter Plan of Treatment Not on file documented as of this encounter Procedures Procedure Name Priority Date/Time Associated Diagnosis Comments DUPLEX FOR DVT, LEG, UNILAT Routine 10/27/2020 10:47 AM EDT Varicose veins of left lower extremity with pain documented in this encounter Results * Duplex for DVT, Leg, Unilat (10/27/2020 10:47 AM EDT) VB Text Report Department: Vascular Surgery Lab Patient: [id number] (RUCHI NÚÑEZ) CPT: 69342 ICD10: I83.812 Referring Physician: JASON BRYAN ?? [...] AM EDT Jason Bryan MD VASCULAR ORDERABLES Performing Organization Address City/State/[facility] Co de Phone Number VASCU[facility] documented in this encounter Visit Diagnoses Diagnosis Varicose veins of left lower extremity with pain Varicose veins of lower extremities with other complications documented in this encounter Care Teams Automatic Folder Seamer Relationship Specialty Start Date End Date Samm Smith MD [address] [place] [id number] PCP - General 03/03/10 documented as of this encounter
--- OUTSIDE RECORDS SUMMARY | 2023-10-27 09:25 | XMS_ITS | Encounter Summary ---
Author Organization [facility] Address [facility] [place] [address] Care Team Providers Care Scrap Handler Name Role Phone Samm Smith MD Primary Care Provider Encounter Details Date Type Department Care Team (Late st Contact Info) Description 09/12/2020 10:30 AM EDT Office [place] [address] Lynnette Domínguez MD [facility] [place] [place] [address] Varicose veins of left lower extremity with [...] Sign Reading Time Taken Comments Blood Pressure 129/69 09/12/2020 10:24 AM EDT Pulse 69 09/12/2020 10:24 AM EDT Temperature - - Respiratory Rate - - Oxygen Saturation - - Inhaled Oxygen Concentration - - Weight 104.3 kg (230 lb) 09/12/2020 10:24 AM EDT reported Height 182.9 cm (6') 09/12/2020 10:24 AM EDT rep orted Body Mass Index 31.19 09/12/2020 10:24 AM EDT documented in this encounter Progress Notes * Lynnette Domínguez MD - 09/12/2020 10:30 AM EDT Images from the original note were not included. Section of Vascular Surgery [facility] [address] [place], [place] [address] OUTPATIENT VASCULAR SURGERY FOLLOW-UP SERVICE DATE: 09/12/2020 SERVICE TIME: 10:59 AM PRIMARY CARE PHYSICIAN: Samm Smith MD REFERRING PROVIDER: [place] [address] Consult requested for an opinion regarding the evaluation and treatment of the above. My final impression and recommendations will be communicated back to the requesting physician by way of the shared medical record or letter via US mail. Reason for Visit: bilateral L>R varicose veins History of Present Illness: Gomez Sparks is a 50 y.o. male here for evaluation of bilateral lower extremity varicose veins, left greater than right. Patient reports that he has itching as well as aching from the knee to the heel. He reports that most significant is the left medial thigh cluster. This area is very painful and aching. He also has burning sensation that is worse at the end of the day. 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 Patient reports he is known to have left lower extremity varicose veins for the last 10 years. He has had no prior interventions. He has no prior history of DVT or PE. No prior history of bleeding varicosities, superficial thrombophlebitis. No prior history of cellulitis, or venous ulcerations. He does wear compression stockings 20 to 30 mmHg for many months, however he does feel that this makes it worse at the end of the day. He is a former smoker and quit 2013. Denies any chest pain or shortness of breath with any of his activities. Past Medical History: Diagnosis Date ??? Varicose vein of leg 08/15/2020 Past Surgical History: Procedure Laterality Date ??? VARICOCELECTOMY No family history on file. Social History Tobacco Use ??? Smoking status: Former Smoker Packs/day: 0.50 Years: 20.00 Pack years: 10.00 Types: Cigarettes Quit date: 06/15/2013 Years since quittin.2 ??? Smokeless tobacco: Never Used Vaping Use ??? Vaping Use: Never used Substance Use Topics ??? Alcohol use: Not on file ??? Drug use: Not on file Current Outpatient Medications Medication Sig Dispense Refill ??? rosuvastatin (Crestor) 10 mg Tablet ??? ibuprofen (Advil;Motrin) 800 mg Tablet No current facility-administered medications for this visit. No Known Allergies COMPLETE REVIEW OF SYSTEMS All other reviewed and negative other than HPI. Physical Exam: PHYSICAL EXAM Physical Exam Performed BP 129/69 (BP Location (NBP): Right arm, Patient Position: Sitting, BP Cuff Sizes: Adult (25-34 cm)) Pulse 69 Ht 182.9 cm (6') Comment: reported Wt 104.3 kg (230 lb) Comment: reported BMI 31.19 kg/m?? CONSTITUTIONAL: alert, well developed, well nourished, in no acute distress NEUROLOGIC/PSYCHIATRIC: Grossly normal HEENT: normal atraumatic, no neck masses, normal thyroid, no jvd. LUNGS: Normal chest wall and respirations. Clear to auscultation. HEART: regular rate and rhythm, S1, S2 normal, no murmur, click, rub or gallop ABDOMEN: soft, non-tender; bowel sounds normal; no masses, no organomegaly INTEGUMENTARY: Wound - none SURGICAL SITES: none MUSCULOSKELETAL: varicosities large along L medial dist thigh, Medial calf and L posterior calf. R medla distal thigh and calf Pulses/Signals: Brachial Radial Femoral Popliteal Dorsalis Pedis Posterior Tibial Right 2/2 2/2 2/2 2/2 2/2 2/2 Left 2/2 2/2 2/2 2/2 2/2 2/2 DATA: Radiology: 09/12/2020 LLE venous insufficiency study Left ? Reflux?Diameter (mm) ??Depth (mm) ?? [...] ? Competent ? SSV ?Competent ? Interpretation: ?? LEFT: There is superficial venous reflux in [...] near the popliteal fossa on today's exam. ?? Deep venous reflux is also noted in the CFV (>2.4 seconds) and in the primary femoral vein through the thigh (reflux >1.6 seconds). No significant reflux noted in the s smaller secondary femoral vein in the proximal to mid thigh or in the popliteal vein. ?? No evidence of common femoral, femoral vein(s) or popliteal DVT. No??evidence of superficial (GSV, SSV or varicose vein) thrombus. ?? I have personally reviewed the following images/data: duplex Impression: 50 y.o. male with symptomatic varicose veins left greater than right that are lifestylelimiting and not improved with conservative measures of compression stockings and elevation. He is noted on duplex today to have a combination of deep and superficial venous reflux. He has deep reflux in his common femoral and femoral vein on the left as well as significant GSV reflux throughout tothe mid calf. I recommended left GSV ablation and stab phlebectomies to help relieve his symptomatic varicose veins. I discussed that he does have ongoing deep venous insufficiency, and he may not have complete resolution of his symptoms. Deep venous insufficiency is predominantly treated with compression and he will require this ongoing long-term. Given that the majority of his symptoms are overhis focal varicosities, I suspect that he will have significant relief from intervention. I discussed the risks and benefits of these procedures and he is interested in proceeding. Plan: - L GSV ablation and stab phlebectomies - ok for [facility] SIGNATURE: Lynnette Domínguez MD PATIENT NAME: Gomez Sparks DATE: September 12, 2020 TIME: 10:59 AM documented in this encounter Plan of Treatment Not on file documented as of this encounter Visit Diagnoses Diagnosis Varicose veins of left lower extremity with pain Varicose veins of lower extremities with other complications documented in this encounter Care Teams Scrap Handler Relationship Specialty Start Date End Date Samm Smith MD [address] [place] [id number] PCP - General 03/03/10 documented as of this encounter
--- OUTSIDE RECORDS SUMMARY | 2023-10-27 09:25 | XMS_ITS | Encounter Summary ---
Author Organization [facility] Address [address] [place] [address] Care Team Providers Care Assistant Store Manager Trainee Name Role Phone Unavailable Primary Care Provider Unavailabl e Encounter Details Date Type Department Care Team (Late st Contact Info) Description 10/01/2021 Lab Requisition [facility] Pathology & Laboratory Medicine - [facility] [address] [place] [address] Outr Resulting Lab, Provider Social History Tobacco Use Types Packs/Day Years Used Date Smoking Tobacco: Never Assessed Sex and Gender Information Value Date Recorded Sex Assigned at Not on file Gender Identity Not on file Sexual Orientation Not on file documented as of this encounter Plan of Treatment Not on file documented as of this encounter Procedures Procedure Name Priority Date/Time Associated Diagnosis Comments PSA TOTAL, DIAGNOSTIC Routine 09/30/2021 17:55 EDT documented in this encounter Results * PSA TOTAL, DIAGNOSTIC (09/30/2021 17:55 EDT) PSA 0.4 <=3.5 ng/mL 10/01/2021 19:07 EDT [facility] Blood VENOUS BLOOD / Unknown 09/30/2021 17:55 EDT 10/01/2021 18:00 EDT Narrative [facility] - 10/01/2021 19:07 EDT NOTE: Serum PSA concentration should not be interpreted as absolute evidence for the presence or absence of malignant disease. Assayed on Siemens ADVIA Centaur XPT using chemiluminescent technology.??Values obtained by using different assay methods cannot be used interchangeably. Provider Outr Resulting Lab CHEMISTRY & BLOOD GAS ORDERABLES [facility] [address] [place] [address] documented in this encounter Visit Diagnoses Not on filedocumented in this encounter
--- OUTSIDE RECORDS SUMMARY | 2023-10-27 09:25 | XMS_ITS | Encounter Summary ---
Author Organization [facility] [place] [address] Care Team Providers Care Head Piece Assembler Name Role Phone Samm Smith MD Primary Care Provider Encounter Details Date Type Department Care Team (Late st Contact Info) Description 09/24/2020 Telephone Vascular Surgery at [facility] [place] [address] Ada Fernandes Social History Tobacco Use Types Packs/Day Years Used Date Smoking Tobacco: Former Cigarettes 0.5 20 0 06/15/1993 - 06/15/2013 Smokeless Tobacco: Never Sex and Gender Information Value Date Recorded Sex Assigned at Not on file Gender Identity Not on file Sexual Orientation Not on file documented as of this encounter Miscellaneous Notes * Telephone Encounter - Ada Fernandes - 09/24/2020 11:49 AM EDT LVM for call back to discuss scheduling Surgery at [facility] * Telephone Encounter - Ada Fernandes - 09/24/2020 11:49 AM EDT I spoke with Mr. Sparks - we have scheduled him for Surgery on 10/23/[address] Bryan. He will have a chuck wagon driver. He will make an appt to have H&P with PCP (Dr. Smith) no later than 1 week prior to Surgery. Letter sent. documented in this encounter Plan of Treatment Not on file documented as of this encounter Visit Diagnoses Not on filedocumented in this encounter Care Teams Head Piece Assembler Relationship Specialty Start Date End Date Samm Smith MD [address] [place] [id number] PCP - General 03/03/10 documented as of this encounter
--- OUTSIDE RECORDS SUMMARY | 2023-10-27 09:25 | XMS_ITS | Referral Summary ---
Author Organization [facility] Address [address] [place] [address] Care Team Providers Care Highway Maintenance Worker Name Role Phone Unavailable Primary Care Provider Unavailabl e Social History Tobacco Use Types Packs/Day Years Used Date Smoking Tobacco: Never Assessed Sex and Gender Information Value Date Recorded Sex Assigned at Not on file Gender Identity Not on file Sexual Orientation Not on file Plan of Treatment Not on file
--- OUTSIDE RECORDS SUMMARY | 2023-10-27 09:25 | XMS_ITS | Encounter Summary ---
Author Organization [facility] Address [facility] [place] [address] Care Team Providers Care Homicide Squad Lieutenant Name Role Phone Samm Smith MD Primary Care Provider [phone] Encounter Details Date Type Department Care Team (Late st Contact Info) Description 10/16/2020 12:45 PM EDT Telephone Pre-Admission Testing at [facility] [address] [place] [address] Social History Tobacco Use Types Packs/Day Years [...] on file documented as of this encounter Progress Notes * Monica Gaitan RN - 10/16/2020 12:47 PM EDTSummary: covid COVID-19 SCREENING: In the past 14 days, have you had any of the following symptoms: [] Fever (subjective or documented fever) [] Chills [] Cough [] Shortness of breath or difficulty breathing [] Fatigue [] Muscle or body aches [] Headache [] New loss of taste or smell [] Sore throat [] Nausea or vomiting [] Diarrhea [x]NONE OF THE ABOVE Vaccinated documented in this encounter Plan of Treatment Not on file documented as of this encounter Visit Diagnoses Not on filedocumented in this encounter Care Teams Homicide Squad Lieutenant Relationship Specialty Start Date End Date Samm Smith MD [address] [place] [address] PCP - General 03/03/10 documented as of this encounter
--- OUTSIDE RECORDS SUMMARY | 2023-10-27 09:25 | XMS_ITS | Encounter Summary ---
Author Organization [facility] Address [facility] [place] [address] Care Team Providers Care Supervisor Research Kennel Name Role Phone Samm Smith MD Primary Care Provider [phone] Encounter Details Date Type Department Care Team (Late st Contact Info) Description 09/12/2020 9:00 AM EDT Tech [place] [id number] Deidre García, NAHID Varicose veins of left lower extremity with [...] Procedure Name Priority Date/Time Associated Diagnosis Comments UNLATERAL VALVULAR INCOMP Routine 09/12/2020 8:48 AM EDT Varicose veins of left lower extremity with pain documented in this encounter Results * LE Unilateral Valvular Incomp Study (09/12/2020 8:48 AM EDT) VB Text Report Department: Vascular Surgery Lab Patient: [id number] (RUHCI NÚÑEZ) CPT: 84697 ICD10: I87.2;I83.812 Referring Physician: ANTONIETA FOX ?? [...] AM EDT Antonieta Fox APRN VASCULAR ORDERABLES Performing Organization Address City/State/[facility] Co de Phone Number VASCUBASE documented in this encounter Visit Diagnoses Diagnosis Varicose veins of left lower extremity with pain Varicose veins of lower extremities with other complications documented in this encounter Care Teams Supervisor Research Kennel Relationship Specialty Start Date End Date Samm Smith MD [address] [place] [id number] PCP - General 03/03/10 documented as of this encounter
--- OUTSIDE RECORDS SUMMARY | 2023-10-27 09:25 | XMS_ITS | Encounter Summary ---
Author Organization [facility] Address [facility] [place] [address] Care Team Providers Care Director Of Event Management Name Role Phone Samm Smith MD Primary [...] Expiration Date Visits Re quested Visits Authorized [id number] 1 1 Encounter Details Date Type Department Care Team (Late st Contact Info) Description 10/23/2020 9:35 AM EDT - 10/23/2020 10:54 AM EDT Surgery Operating Room Cely [address]ison [address] [place] [id number] Jason Bryan MD [facility] [place] [address] ENDOVENOUS ABLATION THERAPY OF INCOMPETENT VEIN, EXTREMITY, FIRST VEIN (WRVU 5.3) Social History Tobacco Use Types Packs/Day Years [...] Sign Reading Time Taken Comments Blood Pressure 107/58 10/23/2020 10:52 AM EDT Pulse 56 10/23/2020 10:52 AM EDT Temperature 36.6 ??C (97.9 ??F) 10/23/2020 10:41 AM E DT Respiratory Rate 16 10/23/2020 10:52 AM EDT Oxygen Saturation 96% 10/23/2020 10:52 AM EDT Inhaled Oxygen Concentration - - Weight [...] mailed to you. Please call our office ([phone]) if you do not receive the ultrasound appointment within 2 days or the clinic appointment within 10 days. For any questions or concerns please call [phone] documented in this encounter Medications at Time [...] discharge. Transported out of facility via , [facility]. * Christ Marie RN - 10/23/2020 12:26 [...] back in bed, pressure dressingapplied, leg elevated. and AMBER aware, continuing to monitor. documented in this [...] Bryan MD - 10/23/2020 9:50 AM EDT [facility] Operative Note [facility] [address] [place] [address] Patient Name: Ruchi Núñez : [id number] MR#: [id number] Case Date: 10/23/2020 Case Scheduled Time: 934 Surgeon: Surgeon(s) and Role: * Jason Bryan MD - Primary * Elisa Alarcon PA - Physician Pool Nurse Preoperative diagnosis: symptomatic varicose veins Postoperative diagnosis: [...] a micropuncture sheath was inserted over a [place] wire. The sheath used as the insertion [...] the duration of the operative session. The graduate assistant athletic trainer adequately prepped the operative site and maintained the best possible exposure of anatomy incident to the procedure. Jason Bryan MD 10/23/2020 documented in this encounter Plan of Treatment Not on file documented as of this encounter Procedures Procedure Name Priority Date/Time Associated Diagnosis Comments Phleb Veins - Extrem 20+ (30506) 10/23/2020 9:26 AM EDT symptomatic varicose veins Endovenous Ablation Incompetent Vein Radiofrequency 1St Vein (72889) 10/23/2020 9:26 AM EDT symptomatic varicose veins documented in this encounter Results * Duplex for DVT, Leg, Unilat (10/27/2020 10:47 AM EDT) Text Report Department: Vascular Surgery Lab Patient: [id number] (RUCHI NÚÑEZ) CPT: 42952 ICD10: I83.812 Referring Physician: JASON BRYAN ?? [...] VASCUBASE documented in this encounter Visit Diagnoses Not [...] 8:45 AM EDT 1,000 mLs 50 mL/hr sodium tetradecyl sulfate (Sotradecol) (30 mg/mL) 3% injection ONCE PRN, Starting on Lina 10/23/20 at 1009, Until Lina 10/23/20 at 1326, Intra-Operative (Intra-Procedure), Routine Given 10/23/2020 10:09 AM EDT 6 mLs 19- Surgical Site documented in this encounter Active and Recently Administered Medications Times are shown in EDT. Scheduled Medication Order 10/21/2020 10/22/2020 10/23/2020 ceFAZolin (Ancef) 2 g in dextrose 5% 100 mL infusion (COMPLETED) 2 g, Intravenous, HEAD GREENSKEEPER TO O.R., 1 dose, On Lina 10/23/20 [...] MD) documented in this encounter Care Teams Director Of Event Management Relationship Specialty Start Date End Date Samm Smith MD [address] [place] [id number] PCP - General 03/03/10 documented as of this encounter
--- OUTSIDE RECORDS SUMMARY | 2023-10-27 09:25 | XMS_ITS | Clinical Summary ---
Author Organization [facility] Address [address] [place] [address] Care Team Providers Care Economic Historian Name Role Phone Unavailable Primary Care Provider Unavailabl e Social History Tobacco Use Types Packs/Day Years Used Date Smoking Tobacco: Never Assessed Sex and Gender Information Value Date Recorded Sex Assigned at Not on file Gender Identity Not on file Sexual Orientation Not on file Plan of Treatment Health Maintenance Due Date Last Done Comments Hepatitis C Screen 1970 Hepatitis B Vaccine (1 of 3 - 19+ 3-dose series) 06/22 COVID-19 Vaccine (2022-24 season) 2022
[2023-10-27 19:42] LABS: ALT 46 U/L (16-63); Creatine Kinase 332 U/L (39-308); Glucose 135 mg/dL (74-106)
[2023-10-27 20:15] LABS: Calculated LDL 143 mg/dL (<100); Cholesterol 230 mg/dL (<200); HDL Cholesterol 60 mg/dL (40-60); Triglyceride 137 mg/dL (<150)
[2023-10-28 20:49] LABS: PSA, Screening 0.3 ng/mL (<=3.5)
== END 2023-10-27 09:23 | disposition home or self-care (01) ==
LOC: NCHCN 09:22
PROVIDERS: PCP Physician Assistant; Visit Provider Internal Medicine
DX: Z00.00 Encounter for general adult medical examination without abnormal findings (principal); E78.5 Hyperlipidemia, unspecified; R73.03 Prediabetes; E66.3 Overweight; Z12.5 Encounter for screening for malignant neoplasm of prostate
CPT/HCPCS: 80061; 82550; 82947; 84153; 84460

== ENCOUNTER 2024-09-05 16:04 | Outpatient (REF) | payer OTHER, SELFPAY ==
[2024-09-05 21:18] LABS: ESR 5 mm/hr (0-20)
[2024-09-05 21:42] LABS: C-Reactive Protein < 0.50 mg/dL (<or=0.5)
[2024-09-07 10:09] LABS: Lyme Ab w Rflx to Lyme Confirm Negative (Negative)
== END 2024-09-05 16:05 | disposition home or self-care (01) ==
LOC: NCHCN 16:04
PROVIDERS: PCP Physician Assistant; Visit Provider Internal Medicine
DX: M13.161 Monoarthritis, not elsewhere classified, right knee (principal); M13.162 Monoarthritis, not elsewhere classified, left knee
CPT/HCPCS: 85652; 86140; 86618

== ENCOUNTER 2024-09-21 00:30 | Outpatient (CLI) | payer OTHER, SELFPAY ==
--- NOTE | 2024-09-21 08:30 | DI.MRI_ITS ---
Exam(s) MR LOWER JOINT RT WO EXAM: MR LOWER JOINT RT WO CLINICAL HISTORY: INTERNAL DERANGEMENT RT KNEE M23.8X1 TECHNIQUE: Multiplanar multisequence MRI of the knee was performed. COMPARISON: No exams were available for comparison FINDINGS: EFFUSION: There is a small knee joint effusion. There is also a Gaitan's cyst in the medial popliteal fossa which measures approximately 5 cm craniocaudal by 1.4 cm AP by 1 cm wide. There are no obvious loose intra-articular bodies evident. MARROW:There is mild subarticular marrow edema in the medial tibial plateau as well as in the sub spinous mid tibial plateau and in the subarticular medial femoral condyle. There are no significant osseous lesions. PATELLOFEMORAL COMPARTMENT: There is a prominent enthesophyte at the quadriceps tendon attachment on the anterosuperior aspect of the patella. There is no evidence of quadriceps tendon tear in the field of view of this study. There is some subcutaneous edema-fluid anterior to the superior aspect of the patellar ligament. There is no evidence of tear of the patellar ligament. There is some thinning of the retropatellar cartilage which is most prominent over the medial facet. There is minimal subarticular signal in the posterior patella. No osteochondral defect at this level. There is no intraosseous signal to suggest recent patellar dislocation. There are no patellar retinacular tears. CRUCIATE LIGAMENTS: The anterior cruciate ligament is intact.The posterior cruciate ligament is intact. MEDIAL COMPARTMENT/MEDIAL MENISCUS: On 1 image there is a subtle suggestion of an inferior surface tear in the posterior horn of the medial meniscus at the mid 3rd level, without evidence of bucket-handle configuration nor meniscocapsular separation. Anterior horn appears intact. There is some degenerative thinning of the articular cartilage over the main weight-bearing surface of the medial femoral condyle and there is mild subarticular edema it also small marginal osteophyte is seen off the inner aspect of the medial condyle. MEDIAL COLLATERAL LIGAMENT: Mild sprain signal. No high-grade tear. LATERAL COMPARTMENT/LATERAL MENISCUS: There is no evidence of tear of the posterior horn of the lateral meniscus..Small area of signal abnormality in the articular cartilage of the inner aspect of the lateral tibial plateau with subjacent marrow edema. This is subjacent to the inner 3rd of the anterior horn of the lateral meniscus.There is slight signal abnormality in the inner 3rd of the anterior horn of the lateral meniscus over this region. ILIOTIBIAL BAND: Intact LATERAL COLLATERAL LIGAMENT COMPLEX: The fibular collateral ligament is intact. The biceps femoris tendon is intact.Popliteus muscle and tendon are intact. IMPRESSION: 1. Small joint effusion and Gaitan cyst as described above. No loose intra- articular bodies evident. There is also a small amount of subcutaneous edema anterior to the lower patella and upper patellar ligament but no injury signal in the patella and patellar ligament. 2. There are no cruciate ligament tears. 3. Mild sprain signal evident in the medial collateral ligament. The lateral collateral ligament complex components are all intact. 4. Very subtle suggestion of possible focal inferior surface tear in the posterior horn of the medial meniscus at the mid 3rd level. Also some mild abnormal signal in the anterior horn of the lateral meniscus which is just above an area of focal cartilage loss and subarticular edema in the tibial plateau at this level. 5. Mild degenerative articular cartilage changes, more so in the medial compartment. DATA REPOSITORY:
== END 2024-09-21 00:50 ==
LOC: DI 01:01
PROVIDERS: PCP Physician Assistant; Visit Provider Internal Medicine
DX: M23.8X1 Other internal derangements of right knee (principal)
CPT/HCPCS: 73721

== ENCOUNTER 2024-10-31 14:27 | Outpatient (CLI) | payer OTHER, SELFPAY ==
--- NOTE | 2024-10-31 14:00 | DI.RAD_ITS ---
Exam(s) XR KNEE RT 4V AP,LAT,WALTER,PAT EXAM: XR KNEE RT 4V AP,LAT,WALTER,PAT CLINICAL HISTORY: R knee pain. TECHNIQUE: 2D digital imaging was performed. Three views. COMPARISON: No exams were available for comparison FINDINGS: BONES: No acute fracture is present. No bony destructive lesion is seen. Patellar at enthesophytes. Small enthesophyte at tibial tubercle. JOINTS: The knee is normally aligned. No joint effusion is seen. The joint spaces are maintained. There is mild periarticular spurring. SOFT TISSUE: Normal. IMPRESSION: Mild degenerative changes. DATA REPOSITORY: RADIATION DOSE DELIVERED:
== END 2024-10-31 14:28 | disposition home or self-care (01) ==
LOC: DIORS 14:27
PROVIDERS: PCP Physician Assistant; Visit Provider Physician Assistant
DX: M25.561 Pain in right knee (principal); M17.11 Unilateral primary osteoarthritis, right knee
CPT/HCPCS: 73564